=== PATIENT | male | born 1930 | race Caucasian/White ===

== ENCOUNTER 2018-11-04 21:17 | Emergency (ER) | payer MEDICARE, OTHER ==
[~2018-11-04] VITALS: Ht 165.1 cm; Wt 107.7 kg
[2018-11-04 21:53] LABS: BASOPHILS # (AUTO) 0.02 x10^3/uL (0-0.1); BASOPHILS % (AUTO) 0 % (0-1); EOSINOPHILS % (AUTO) 0 % (1-7); LYMPHOCYTES # (AUTO) 1.08 x10^3/uL (1-3.4); LYMPHOCYTES % (AUTO) 9 % (22-44); MD NO; MEAN CORPUSCULAR HEMOGLOBIN 31.6 pg (27.5-34.5); MEAN CORPUSCULAR HGB CONC 33.1 g/dL (33.2-36.2); MEAN CORPUSCULAR VOLUME 95.4 fL (81-97); MEAN PLATELET VOLUME 7.7 fL (7.4-10.4); MONOCYTES # (AUTO) 0.28 x10^3/uL (0.2-0.8); MONOCYTES % (AUTO) 2 % (2-9); NEUTROPHILS % (AUTO) 89 % (42-75); PLATELET COUNT 292 x10^3/uL (130-400); RED BLOOD COUNT 4.71 x10^6/uL (4.38-5.82); RED CELL DISTRIBUTION WIDTH 13.8 % (9.4-14.8)
[2018-11-04] MEDS ORDERED: FENTANYL 25 MCG PATCH TD ONE (22:00)
[2018-11-04] MEDS ORDERED: ONDANSETRON 2MG/ML, 2ML IVPush ONE (22:00)
[2018-11-04] MEDS ORDERED: PLEASE ENTER ALLERGIES MC SCH (22:00)
--- NOTE | 2018-11-04 22:00 | NUR ---
LATE ENTRY: SEARCHED PT. BODY FOR FENTANYL PATCH. NO PATCH FOUND.
[2018-11-04 22:06] LABS: ALANINE AMINOTRANSFERASE 12 U/L (12-78); ALBUMIN 3.3 g/dL (3.4-5.0); ANION GAP 6 mmol/L (5-15); CALCIUM 9.2 mg/dL (8.5-10.1); CHLORIDE 105 mmol/L (98-107)
[2018-11-04 22:08] LABS: ALKALINE PHOSPHATASE 139 U/L (45-117); BILIRUBIN,TOTAL 0.8 mg/dL (0.2-1.0); TOTAL PROTEIN 7.7 g/dL (6.4-8.2)
[2018-11-04] MEDS ORDERED: ONDANSETRON 2MG/ML, 2ML ONE (22:15)
--- NOTE | 2018-11-04 23:20 | NUR ---
PT. REPORTS CONTINUED BACK PAIN BUT STATES FEELING BETTER NAUSEA HERNANDEZ. NADN. CALL LIGHT IN REACH. ALL SAFETY MEASURES MAINTAINED. PT. REQUESTING SOMETHING MORE FOR PAIN. WILL DISCUSS WITH ERP.
--- NOTE | 2018-11-04 23:35 | NUR ---
PT. PROVIDED WITH STRING CHEESE, CRACKERS, WATER FOR PO CHALLENGE. STATES "I AM SO HUNGRY NOW, I WAS SICK ALL DAY." DISCUSSED PT. REQUEST FOR PAIN MEDS WITH DR. JI, NO NEW ORDERS AT THIS TIME.
[2018-11-04] MEDS ORDERED: OXYcodone/APAP 5/325MG TABLET ONE (23:45)
--- NOTE | 2018-11-04 23:47 | NUR ---
NEW ORDER RECEIVED AND PT. MEDICATED PER JUL.
--- NOTE | 2018-11-04 23:48 | NUR ---
PT. WAS ABLE TO KEEP CRACKERS, CHEESE, WATER DOWN.
[2018-11-05] MEDS ORDERED: OXYcodone/APAP 5/325MG TABLET PO ONE
--- NOTE | 2018-11-05 00:28 | NUR ---
REPORT CALLED TO BOB TSANG AT [facility].
[2018-11-05 00:58] VITALS: BP 166/86
== END 2018-11-05 00:59 | disposition home or self-care (01) ==
LOC: ED 11-05 00:41
DX: I10 Essential (primary) hypertension (principal); E11.9 Type 2 diabetes mellitus without complications; E78.5 Hyperlipidemia, unspecified
CPT/HCPCS: 36415; 80053; 83690; 85025; 96374; 99283; J2405